=== PATIENT | male | born 1950 | race Caucasian/White ===

== ENCOUNTER 2016-03-02 08:46 | Emergency (ER) | payer OTHER ==
[~2016-03-02] VITALS: Ht 180.3 cm; Wt 98.8 kg
[~2016-03-02 08:46] MED LIST: ALPRAZOLAM ER1 MG PO; ALPRAZOLAM1 MG PO; ALPRAZOLAM2 MG PO; AMIODARONE HCL200 MG PO; ASPIR-MOX 325325 MG PO; ASPIR-TRIN325 M1 PO; ASPIRIN325 MG PO; ATIVAN0.5 MG PO; BACTROBAN OINTM22 GM TP; BESIVANCE5 ML RIGHT EYE; BYETTA5 MCG/0.02 SQ; CEFTIN500 MG PO; CLOPIDOGREL75 MG PO; CRESTOR5 MG PO; CYCLOBENZAPRINE5 MG PO; D-VERT25 MG PO; ELAVIL25 MG PO; FISH OIL 1,0001 EAC8 PO; FISH OIL CONC1 EACH PO; FISH OIL500 MG PO; GLIPIZIDE10 M1 PO; GLIPIZIDE10 MG PO; GLUCOTROL10 MG PO; HUMULIN INSULIN SC; IMDUR60 MG PO; LEVAQUIN500 MG PO; LOPRESSOR25 MG PO; METOPROLOL SUCC25 MG PO; MULTIVITAMIN1 EAC2 PO; NORCO 5/3251 TABLET PO; NORVASC10 MG PO; NOVOLIN N100 UNITS/ SC; NOVOLOG 10100 UNITS/ SC; Novolog Pen 3 Ml SC; OMEPRAZOLE40 MG PO; ONDANSETRON HCL8 MG PO; PLAVIX75 MG PO; PREDNISOLONE AC15 ML RIGHT EYE; PRILOSEC40 MG PO; PRINIVIL20 MG PO; PROLENSA1.6 ML RIGHT EYE; RED YEAST RICE600 MG; RED YEAST RICE600 MG PO; RELION; RELION HUM100 UNIT/1; RELION HUM100 UNIT/1 SC; RELION HUM100 UNIT/1 SQ; RELION NOV100 UNIT/1 SQ; RELION SC; RISPERDAL1 MG PO; Robaxin PO; SLEEP AID25 M2 PO; SYSTANE BALANCE10 ML BOTH EYES; TRAMADOL HCL50 MG PO; ULTRAM50 MG PO; XANAX1 MG PO; ZESTRIL,PRINIVI20 MG PO; ZESTRIL,PRINIVIL5 MG PO; ZITHROMAX500 MG PO
[2016-03-02 11:00] LABS: INFLUENZA A VIRAL ANTIGEN NEGATIVE; INFLUENZA B VIRAL ANTIGEN POSITIVE
[2016-03-02 11:06] LABS: CHLORIDE 107 mEq/L (99-109); POTASSIUM 4.4 mEq/L (3.7-5.4); SODIUM 136 mEq/L (136-147)
[2016-03-02 11:08] LABS: GLUCOSE 123 mg/dL (70-99)
[2016-03-02 11:09] LABS: ANION GAP 8 MEQ/L (2-14)
[2016-03-02 11:11] LABS: ALKALINE PHOSPHATASE 56 IU/L (3-129)
[2016-03-02 11:12] LABS: GFR ESTIMATE (CALCULATED) > 59 mL/min/
[2016-03-02 11:13] LABS: UREA NITROGEN (BUN) 17 mg/dL (9-23)
[2016-03-02 11:17] LABS: TROP-I INTERPRETATION NEGATIVE; TROPONIN-I < 0.01 ng/mL (0.0-0.30)
[2016-03-02 11:35] LABS: BASOPHIL COUNT 0.1 K/uL (0-0.1); EOSINOPHIL (%) 4.2 % (0-5); EOSINOPHIL COUNT 0.1 K/uL (0-0.3); HEMATOCRIT 26.6 % (38.0-50.0); HEMATOLOGY COMMENT 1 SMEAR COMPATIBLE; IMMATURE GRANULOCYTE (%) 3.3 % (0.0-0.7); IMMATURE GRANULOCYTE COUNT 0.8 K/uL; LYMPHOCYTE COUNT 1.2 K/uL (1.0-2.8); MCHC 33.5 G/DL (30.0-36.0); MCV 83.6 FL (86-99); MONOCYTE (%) 10.4 % (3-12); MONOCYTE COUNT 0.3 K/uL (0-0.8); NEUTROPHIL COUNT 0.7 K/uL (1.8-6.4); PLAT.SUFFICIENCY DECREASED; PLATELET COUNT 63 K/uL (156-360); RBC DIS.WIDTH-CV 15.3 % (11.8-14.6); RBC DIS.WIDTH-SD 44.7 % (39-53); RED BLOOD COUNT 3.18 M/uL (4.00-5.50); USER ID CCL
[2016-03-02 11:42] LABS: WHITE BLOOD COUNT 2.4 K/uL (4.1-10.2)
[2016-03-02] MEDS ORDERED: TAMIFLU75 MG PO (12:06)
[2016-03-02 12:32] VITALS: BP 131/50
[2016-03-14] MEDS ORDERED: CIPRO250 MG PO (11:27)
== END 2016-03-02 12:32 | disposition home or self-care (01) ==
LOC: EME 08:46
PROVIDERS: Emergency Medicine
DX: J10.1 Influenza due to other identified influenza virus with other respiratory manifestations (principal); E11.9 Type 2 diabetes mellitus without complications; J44.9 Chronic obstructive pulmonary disease, unspecified; E78.5 Hyperlipidemia, unspecified; I10 Essential (primary) hypertension; I25.2 Old myocardial infarction; K21.9 Gastro-esophageal reflux disease without esophagitis; Z85.828 Personal history of other malignant neoplasm of skin; Z98.61 Coronary angioplasty status; Z95.1 Presence of aortocoronary bypass graft; Z79.4 Long term (current) use of insulin; Z87.891 Personal history of nicotine dependence
CPT/HCPCS: 71020; 80053; 83605; 84484; 85025 91; 87502; 93005; 99281; 99285

== ENCOUNTER 2016-05-14 10:46 | Emergency (ER) | payer OTHER ==
[~2016-05-14] VITALS: Ht 180.3 cm; Wt 98.1 kg
[~2016-05-14 10:46] MED LIST changes: +CIPRO250 MG PO; +CIPRO500 MG PO; +DIAZEPAM5 MG PO; +TAMIFLU75 MG PO
[2016-05-14 12:31] LABS: CHLORIDE 101 mEq/L (99-109); SODIUM 133 mEq/L (136-147)
[2016-05-14 12:32] LABS: GLUCOSE 125 mg/dL (70-99)
[2016-05-14 12:34] LABS: ANION GAP 11 MEQ/L (2-14); EOSINOPHIL COUNT 0.1 K/uL (0-0.3); HEMATOCRIT 26.9 % (38.0-50.0); IMMATURE GRANULOCYTE (%) 1.8 % (0.0-0.7); INSTRUMENT ABS NEUTROPHIL CT 0.2 K/uL; LYMPHOCYTE COUNT 0.7 K/uL (1.0-2.8); MCH 30.5 PG (29.0-34.0); MCHC 33.1 G/DL (30.0-36.0); MCV 92.1 FL (86-99); MEAN PLAT.VOLUME 10.7 uM^3 (9.0-12.4); MONOCYTE (%) 3.6 % (3-12); NEUTROPHIL (%) 20.7 % (45-76); NEUTROPHIL COUNT 0.2 K/uL (1.8-6.4); RBC DIS.WIDTH-CV 20.6 % (11.8-14.6); RBC DIS.WIDTH-SD 68.1 % (39-53); RED BLOOD COUNT 2.92 M/uL (4.00-5.50)
[2016-05-14 12:36] LABS: GFR ESTIMATE (CALCULATED) > 59 mL/min/
[2016-05-14 12:37] LABS: UREA NITROGEN (BUN) 24 mg/dL (9-23)
[2016-05-14 12:56] LABS: PLATELET COUNT 386 K/uL (156-360); WHITE BLOOD COUNT 1.1 K/uL (4.1-10.2)
[2016-05-14 14:02] VITALS: BP 135/68
== END 2016-05-14 14:05 | disposition home or self-care (01) ==
LOC: EME 10:46
PROVIDERS: Emergency Medicine
DX: R42 Dizziness and giddiness (principal); D46.9 Myelodysplastic syndrome, unspecified; I48.91 Unspecified atrial fibrillation; I10 Essential (primary) hypertension; J44.9 Chronic obstructive pulmonary disease, unspecified; E11.9 Type 2 diabetes mellitus without complications; E78.5 Hyperlipidemia, unspecified; I25.2 Old myocardial infarction; K21.9 Gastro-esophageal reflux disease without esophagitis; Z85.828 Personal history of other malignant neoplasm of skin; Z92.21 Personal history of antineoplastic chemotherapy; Z95.5 Presence of coronary angioplasty implant and graft; Z95.1 Presence of aortocoronary bypass graft; Z79.4 Long term (current) use of insulin; Z79.02 Long term (current) use of antithrombotics/antiplatelets; Z87.891 Personal history of nicotine dependence
CPT/HCPCS: 70450; 80048; 85025; 86850; 86900; 86901; 93005; 99281; 99285; J2405; J7030

== ENCOUNTER 2016-07-23 18:57 | Emergency (ER) | payer OTHER ==
[~2016-07-23] VITALS: Ht 175.3 cm; Wt 98.9 kg
[2016-07-23 20:11] LABS: HEMATOCRIT 38.1 % (38.0-50.0); MCH 28.9 PG (29.0-34.0); MCHC 33.3 G/DL (30.0-36.0); MCV 86.8 FL (86-99); MEAN PLAT.VOLUME 9.7 uM^3 (9.0-12.4); PLATELET COUNT 324 K/uL (156-360); RBC DIS.WIDTH-CV 16.7 % (11.8-14.6); RBC DIS.WIDTH-SD 52.9 % (39-53); RED BLOOD COUNT 4.39 M/uL (4.00-5.50); WHITE BLOOD COUNT 8.1 K/uL (4.1-10.2)
[2016-07-23 20:19] LABS: CHLORIDE 105 mEq/L (99-109); POTASSIUM 4.6 mEq/L (3.7-5.4); SODIUM 136 mEq/L (136-147)
[2016-07-23 20:21] LABS: GLUCOSE 130 mg/dL (70-99)
[2016-07-23 20:22] LABS: ANION GAP 7 MEQ/L (2-14)
[2016-07-23 20:25] LABS: GFR ESTIMATE (CALCULATED) > 59 mL/min/
[2016-07-23 20:26] LABS: UREA NITROGEN (BUN) 23 mg/dL (9-23)
[2016-07-23 20:30] LABS: TROP-I INTERPRETATION NEGATIVE; TROPONIN-I 0.04 ng/mL (0.0-0.30)
[2016-07-23 20:41] LABS: PROTHROMBIN TIME 10.1 (9.2-11.2); PTT 27.8 (25-32)
[2016-07-23 21:06] LABS: ANISOCYTOSIS 1+; ATYPICAL LYMPHOCYTE 7.9 %; BAND NEUTROPHILS 0.9 % (0-8.0); BASOPHILS 4.4 %; EOSINOPHIL ABS CT 1.1; EOSINOPHILS 13.3 % (0-5.0); INSTRUMENT ABS NEUTROPHIL CT 3.4 K/uL; LYMPHOCYTES 19.5 % (15.0-45.0); MICROCYTOSIS 1+; OVALOCYTES 1+; SEG.NEUTROPHILS 48.7 % (46.0-76.0)
[2016-07-23] MEDS ORDERED: ALPRAZOLAM0.5 MG PO (21:31)
[2016-07-23] MEDS ORDERED: HYDROCODON-ACE1 EAC7 PO (21:32)
[2016-07-23 21:43] VITALS: BP 174/83
== END 2016-07-23 21:46 | disposition left against medical advice (07) ==
LOC: EME 18:57
PROVIDERS: Emergency Medicine
DX: R07.9 Chest pain, unspecified (principal); E11.9 Type 2 diabetes mellitus without complications; J44.9 Chronic obstructive pulmonary disease, unspecified; E78.5 Hyperlipidemia, unspecified; I10 Essential (primary) hypertension; I25.2 Old myocardial infarction; Z87.891 Personal history of nicotine dependence
CPT/HCPCS: 70450; 71010; 80048; 84484; 85025 91; 85610; 85730; 93005; 99281; 99284; J7040

== ENCOUNTER 2016-08-19 09:32 | Day surgery (SDC) | payer OTHER ==
[~2016-08-19] VITALS: Ht 177.8 cm; Wt 100.2 kg
[~2016-08-19 09:32] MED LIST changes: +ALPRAZOLAM0.5 MG PO; +HYDROCODON-ACE1 EAC7 PO
[2016-08-19 17:00] VITALS: BP 147/67
[2016-08-19 19:45] VITALS: BP 139/62
[2016-08-19 23:34] VITALS: BP 99/50
[2016-08-20 04:17] VITALS: BP 111/56
[2016-08-20 05:36] LABS: BASOPHIL COUNT 0.2 K/uL (0-0.1); EOSINOPHIL (%) 9.9 % (0-5); EOSINOPHIL COUNT 0.9 K/uL (0-0.3); HEMATOCRIT 36.7 % (38.0-50.0); IMMATURE GRANULOCYTE (%) 0.3 % (0.0-0.7); INSTRUMENT ABS NEUTROPHIL CT 3.7 K/uL; LYMPHOCYTE COUNT 2.9 K/uL (1.0-2.8); MCH 29.1 PG (29.0-34.0); MCHC 33.8 G/DL (30.0-36.0); MCV 86.2 FL (86-99); MEAN PLAT.VOLUME 9.8 uM^3 (9.0-12.4); MONOCYTE (%) 11.9 % (3-12); NEUTROPHIL (%) 42.2 % (45-76); NEUTROPHIL COUNT 3.7 K/uL (1.8-6.4); PLATELET COUNT 268 K/uL (156-360); RBC DIS.WIDTH-CV 16.2 % (11.8-14.6); RBC DIS.WIDTH-SD 51.1 % (39-53); RED BLOOD COUNT 4.26 M/uL (4.00-5.50); WHITE BLOOD COUNT 8.7 K/uL (4.1-10.2)
[2016-08-20 05:54] LABS: ANION GAP 9 MEQ/L (2-14); CHLORIDE 106 MEQ/L (99-109); GFR ESTIMATE (CALCULATED) > 59 mL/min/; GLUCOSE 102 mg/dL (70-99); POTASSIUM 4.5 MEQ/L (3.7-5.4); SAMPLE HEMOLYSIS CHECK 0; SAMPLE ICTERIC CHECK 0; SAMPLE LIPEMIA CHECK 0; UREA NITROGEN (BUN) 29 mg/dL (9-23)
[2016-08-20 05:57] LABS: SODIUM 137 MEQ/L (136-147)
[2016-08-20 08:07] VITALS: BP 154/73
[2016-08-20] MEDS ORDERED: PRAVASTATIN SOD40 MG PO (09:00)
[2016-08-20] MEDS ORDERED: ASPIRIN EC325 MG PO (09:00)
== END 2016-08-20 11:09 | disposition home or self-care (01) ==
LOC: CATH 09:32 → 2SOUTH 14:30 → 4EAST 14:30 → 2SOUTH 14:30 → 4EAST 16:59
PROVIDERS: Internal Medicine Cardiovascular Disease
DX: I25.10 Atherosclerotic heart disease of native coronary artery without angina pectoris (principal); Z95.1 Presence of aortocoronary bypass graft; Z95.5 Presence of coronary angioplasty implant and graft; I25.2 Old myocardial infarction; E78.5 Hyperlipidemia, unspecified; E11.9 Type 2 diabetes mellitus without complications; I10 Essential (primary) hypertension; Z79.4 Long term (current) use of insulin; Z79.02 Long term (current) use of antithrombotics/antiplatelets
CPT/HCPCS: 80048; 82948; 85025; 85347; 93005; C1725; C1760; C1769; C1874; C1887; C1894; G0378; J1200; J1644; J1815; J2250; J3010; J7030

== ENCOUNTER 2017-02-11 17:01 | Observation (INO) | payer OTHER ==
[~2017-02-11] VITALS: Ht 177.8 cm; Wt 102.0 kg
[~2017-02-11 17:01] MED LIST changes: +ASPIRIN EC325 MG PO; +PRAVASTATIN SOD40 MG PO
[2017-02-11 18:00] LABS: HEMATOCRIT 36.7 % (38.0-50.0); MCH 30.1 PG (29.0-34.0); MCHC 34.3 G/DL (30.0-36.0); MCV 87.6 FL (86-99); MEAN PLAT.VOLUME 9.5 uM^3 (9.0-12.4); PLATELET COUNT 241 K/uL (156-360); RBC DIS.WIDTH-CV 13.6 % (11.8-14.6); RBC DIS.WIDTH-SD 43.6 % (39-53); RED BLOOD COUNT 4.19 M/uL (4.00-5.50); WHITE BLOOD COUNT 8.4 K/uL (4.1-10.2)
[2017-02-11 18:10] LABS: CHLORIDE 106 mEq/L (99-109); POTASSIUM 4.3 mEq/L (3.7-5.4); SODIUM 140 mEq/L (136-147)
[2017-02-11 18:12] LABS: GLUCOSE 95 mg/dL (70-99)
[2017-02-11 18:14] LABS: ANION GAP 10 MEQ/L (2-14)
[2017-02-11 18:16] LABS: GFR ESTIMATE (CALCULATED) > 59 mL/min/ (58.99-99999)
[2017-02-11 18:17] LABS: UREA NITROGEN (BUN) 27 mg/dL (9-23)
[2017-02-11 18:23] LABS: TROP-I INTERPRETATION NEGATIVE; TROPONIN-I < 0.01 ng/mL (0.0-0.30)
[2017-02-11 20:23] LABS: POINT-OF-CARE METER ID UU14100415
[2017-02-11] MEDS ORDERED: TRADJENTA5 MG PO (20:27)
[2017-02-11] MEDS ORDERED: ADULT ASPIRIN R81 MG PO (20:27)
[2017-02-11] MEDS ORDERED: TYLENOL ARTHRI650 MG PO (20:28)
[2017-02-11 22:10] VITALS: BP 150/70
[2017-02-12 01:02] LABS: TROP-I INTERPRETATION NEGATIVE; TROPONIN-I 0.01 ng/mL (0.0-0.30)
[2017-02-12 03:19] VITALS: BP 134/63
[2017-02-12 05:23] LABS: HEMATOCRIT 34.7 % (38.0-50.0); MCH 28.9 PG (29.0-34.0); MCHC 32.9 G/DL (30.0-36.0); MCV 87.8 FL (86-99); MEAN PLAT.VOLUME 9.8 uM^3 (9.0-12.4); PLATELET COUNT 230 K/uL (156-360); RBC DIS.WIDTH-CV 13.6 % (11.8-14.6); RBC DIS.WIDTH-SD 43.8 % (39-53); RED BLOOD COUNT 3.95 M/uL (4.00-5.50); WHITE BLOOD COUNT 6.1 K/uL (4.1-10.2)
[2017-02-12 05:46] LABS: ALKALINE PHOSPHATASE 41 IU/L (3-129); ANION GAP 7 MEQ/L (2-14); CHLORIDE 108 MEQ/L (99-109); GFR ESTIMATE (CALCULATED) > 59 mL/min/ (58.99-99999); GLUCOSE 97 mg/dL (70-99); POTASSIUM 4.3 MEQ/L (3.7-5.4); SAMPLE HEMOLYSIS CHECK 0; SAMPLE ICTERIC CHECK 0; SAMPLE LIPEMIA CHECK 0; SODIUM 141 MEQ/L (136-147); TOTAL BILIRUBIN 0.4 MG/DL (0.0-1.0); UREA NITROGEN (BUN) 25 mg/dL (9-23)
[2017-02-12 06:07] LABS: TROP-I INTERPRETATION NEGATIVE; TROPONIN-I < 0.01 ng/mL (0.0-0.30)
[2017-02-12 08:17] LABS: POINT-OF-CARE METER ID UU13113700
[2017-02-12 08:30] VITALS: BP 130/62
[2017-02-12 11:20] VITALS: BP 129/60
[2017-02-12 12:19] LABS: POINT-OF-CARE METER ID UU13113700
== END 2017-02-12 14:40 | disposition left against medical advice (07) ==
LOC: EME 17:01 → EDOF 20:47 → 5WEST 20:47 → ENRESERV 20:51 → 5WEST 22:01
PROVIDERS: Internal Medicine; Physician Assistant
DX: R07.89 Other chest pain (principal); I25.10 Atherosclerotic heart disease of native coronary artery without angina pectoris; Z95.1 Presence of aortocoronary bypass graft; Z95.5 Presence of coronary angioplasty implant and graft; I25.2 Old myocardial infarction; M19.012 Primary osteoarthritis, left shoulder; I71.4 Abdominal aortic aneurysm, without rupture; D46.9 Myelodysplastic syndrome, unspecified; E78.5 Hyperlipidemia, unspecified; F32.9 Major depressive disorder, single episode, unspecified; F41.9 Anxiety disorder, unspecified; E11.9 Type 2 diabetes mellitus without complications; I11.9 Hypertensive heart disease without heart failure; Z79.82 Long term (current) use of aspirin; Z79.02 Long term (current) use of antithrombotics/antiplatelets; Z79.4 Long term (current) use of insulin; R79.89 Other specified abnormal findings of blood chemistry; Z85.828 Personal history of other malignant neoplasm of skin; Z87.891 Personal history of nicotine dependence; Z88.5 Allergy status to narcotic agent; Z88.8 Allergy status to other drugs, medicaments and biological substances
CPT/HCPCS: 71020; 80048; 80053; 82948; 84484; 85027; 93005; 99281; 99285; G0378; J7030

== ENCOUNTER 2017-06-16 09:51 | Emergency (ER) | payer OTHER ==
[~2017-06-16] VITALS: Ht 175.3 cm; Wt 80.5 kg
[~2017-06-16 09:51] MED LIST changes: +ADULT ASPIRIN R81 MG PO; +TRADJENTA5 MG PO; +TYLENOL ARTHRI650 MG PO
[2017-06-16 10:46] LABS: HEMATOCRIT 32.8 % (38.0-50.0); HEMOGLOBIN 11.7 G/DL (12.5-16.6); MCH 32.8 PG (29.0-34.0); MCHC 35.7 G/DL (30.0-36.0); MCV 91.9 FL (86-99); NRBC (%) 2.2 /100 WBC (0-0); PLATELET COUNT 168 K/uL (156-360); RBC DIS.WIDTH-CV 14.1 % (11.8-14.6); RBC DIS.WIDTH-SD 48.1 % (39-53); RED BLOOD COUNT 3.57 M/uL (4.00-5.50); WHITE BLOOD COUNT 3.7 K/uL (4.1-10.2)
[2017-06-16 10:54] LABS: ALBUMIN 3.9 g/dL (3.2-4.8); CHLORIDE 101 mEq/L (99-109); POTASSIUM 4.6 mEq/L (3.7-5.4); SODIUM 138 mEq/L (136-147)
[2017-06-16 10:57] LABS: GLUCOSE 196 mg/dL (70-99); TOTAL PROTEIN 7.6 g/dL (6.4-8.3)
[2017-06-16 10:59] LABS: TOTAL BILIRUBIN 0.5 mg/dL (0.0-1.0)
[2017-06-16 11:00] LABS: ALKALINE PHOSPHATASE 51 IU/L (3-129); GFR ESTIMATE (CALCULATED) > 59 mL/min/ (58.99-99999)
[2017-06-16 11:01] LABS: UREA NITROGEN (BUN) 19 mg/dL (9-23)
[2017-06-16 11:02] LABS: AST (GOT) 23 IU/L (2-34)
[2017-06-16 11:03] LABS: ALT (GPT) 30 IU/L (3-49)
[2017-06-16 11:07] LABS: TROP-I INTERPRETATION NEGATIVE; TROPONIN-I < 0.01 ng/mL (0.0-0.30)
[2017-06-16] MEDS ORDERED: ZITHROMAX Z-PA250 MG PO (13:52)
[2017-06-16 14:10] VITALS: BP 140/65
== END 2017-06-16 14:10 | disposition home or self-care (01) ==
LOC: EME 09:51
PROVIDERS: Family Medicine
DX: J18.9 Pneumonia, unspecified organism (principal); J44.0 Chronic obstructive pulmonary disease with (acute) lower respiratory infection; M79.89 Other specified soft tissue disorders; I25.2 Old myocardial infarction; Z95.1 Presence of aortocoronary bypass graft; Z95.5 Presence of coronary angioplasty implant and graft; I10 Essential (primary) hypertension; E78.5 Hyperlipidemia, unspecified; E11.9 Type 2 diabetes mellitus without complications; Z79.4 Long term (current) use of insulin; Z79.02 Long term (current) use of antithrombotics/antiplatelets; Z85.828 Personal history of other malignant neoplasm of skin; Z79.82 Long term (current) use of aspirin; Z92.21 Personal history of antineoplastic chemotherapy; Z87.891 Personal history of nicotine dependence
CPT/HCPCS: 71046; 71275; 80053; 83880; 84484; 85027; 93005; 99281; 99285

== ENCOUNTER → 2017-08-02 | Outpatient (CLI) | payer OTHER ==
[~2017-08-02] MED LIST changes: +BACLOFEN10 MG PO; +KALEXATE15 GM PO; +METFORMIN HCL500 M4 PO; +NEURONTIN300 MG PO; +OMEPRAZOLE40 M1 PO; +PEG 3350 ELEC4000 ML PO; +ZANTAC300 MG PO; +ZITHROMAX Z-PA250 MG PO
[2017-08-02 08:26] LABS: BASOPHIL (%) 0.5 % (0-1); EOSINOPHIL COUNT 0.1 K/uL (0-0.3); HEMATOCRIT 27.2 % (38.0-50.0); HEMOGLOBIN 9.8 G/DL (12.5-16.6); IMMATURE GRANULOCYTE (%) 0.5 % (0.0-0.7); LYMPHOCYTE (%) 66.2 % (15-42); LYMPHOCYTE COUNT 1.3 K/uL (1.0-2.8); MCH 31.9 PG (29.0-34.0); MCV 88.6 FL (86-99); MONOCYTE (%) 4.5 % (3-12); MONOCYTE COUNT 0.1 K/uL (0-0.8); NEUTROPHIL (%) 24.3 % (45-76); NEUTROPHIL COUNT 0.5 K/uL (1.8-6.4); PLATELET COUNT 63 K/uL (156-360); RBC DIS.WIDTH-CV 13.8 % (11.8-14.6); RBC DIS.WIDTH-SD 44.7 % (39-53); RED BLOOD COUNT 3.07 M/uL (4.00-5.50)
[2017-08-02 12:22] LABS: ABS NEUTROPHIL COUNT 0.5; ATYPICAL LYMPHOCYTE 0.9 %; BASOPHILS 0.9 %; EOSINOPHIL ABS CT 0.2; EOSINOPHILS 8.7 % (0-5.0); MACROCYTES 1+; MONOCYTES 0.9 % (0-9.0); NUCLEATED RBC'S 11.4; PLAT.SUFFICIENCY DECREASED; SEG.NEUTROPHILS 26.3 % (46.0-76.0)
[2017-08-02 12:23] LABS: LYMPHOCYTES 62.3 % (15.0-45.0)
[2017-08-04 14:19] LABS: NUMBER OF MARKERS 24; SPECIMEN TYPE BONE MARROW; SPECIMEN VIABILITY 94
== END | disposition home or self-care (01) ==
LOC: OPR 07:45 → EDSTATUS 09:00 → OPR 09:00
PROVIDERS: Internal Medicine
PROC: 07DS3ZX Extraction of Vertebral Bone Marrow, Percutaneous Approach, Diagnostic (ICD-10-PCS; principal; 2017-08-02)
DX: D46.9 Myelodysplastic syndrome, unspecified (principal)
CPT/HCPCS: 77012; 82948; 85007; 85025; J3010

== ENCOUNTER → 2017-10-12 | Outpatient (CLI) | payer OTHER ==
[2017-10-12] VITALS (8 sets, daily range): BP systolic 94–140; BP diastolic 54–65
[~2017-10-12] VITALS: Ht 177.8 cm; Wt 103.6 kg
[~2017-10-12] MED LIST changes: +FOLIC ACID-VIT1 EAC1 PO; +RANITIDINE HCL300 MG PO; +THIAMINE HCL50 MG PO; +VITAMIN B-650 M1 PO; +VITAMIN B122500 MCG PO
== END | disposition home or self-care (01) ==
LOC: IVINF 07:23
DX: D50.0 Iron deficiency anemia secondary to blood loss (chronic) (principal)
CPT/HCPCS: 36430; 86999; P9016